=== PATIENT | male | born 1990 | race Caucasian/White ===

== ENCOUNTER 2018-05-20 07:30 | Day surgery (SDC) | payer OTHER ==
[2018-05-10 11:39] VITALS: BMI 32.5
[2018-05-20] MEDS ORDERED: MIDAZOLAM HCL 2 MG/2 ML SINGLE DOSE VIAL ONE ×2 (09:57→11:29)
[2018-05-20] MEDS ORDERED: ROPIVACAINE HCL 0.5% 30ML VIAL ONE (09:57)
[2018-05-20] MEDS ORDERED: BUPIVACAINE HCL/EPINEPHRINE/PF 30 ML VIAL IJ ONE (11:04)
[2018-05-20] MEDS ORDERED: ceFAZolin SODIUM 1 GM VIAL ONE (11:28)
[2018-05-20] MEDS ORDERED: EPINEPHrine 1:1,000 1 MG/1 ML - 30ML VIAL (INJECTION) ONE (11:39)
[2018-05-20] MEDS ORDERED: BUPIVACAINE 0.25% /EPI 1:200,000 10 ML VIAL INF ONE (11:45)
[2018-05-20 13:46] VITALS: PULSE 88
[2018-05-20 14:57] VITALS: BP 123/68; TEMP 98.3
--- NOTE | 2018-05-20 15:05 | OP ---
Operative Note - Note: Operative Date: 05/20/18 Pre-Operative Diagnosis: Right shoulder pain Operation: Right shoulder arthroscopy, distal clavicle excision, labral debridement Post-Operative Diagnosis: Same as Pre-op Surgeon: Omer Chang Top Waddy: Shiva Shanks Anesthesiologist/SOLID WASTE ANALYST: Tor Tilley Anesthesia: MAC Operative Report Dictated: Yes
--- NOTE | 2018-05-20 15:06 | SURG ---
Surgery Furniture Assembler Note Furniture Assembler: Shiva Shanks PA-C Date of Service: 05/20/18 Diagnosis: Right shoulder pain Procedure: Right shoulder arthroscopy, distal clavicle excision, labral debridement I was present for the entirety of the operative procedure. For further detail, please refer to operative report. Visit type - Case Type Case Type: Scheduled - New patient This patient is new to me today: Yes Date on this admission: 05/20/18
--- NOTE | 2018-05-25 14:28 | PATH ---
Surgical Pathology Report Patient Name: ANNABEL SWEENEY Med. Rec. #: [id number] /Age/Gender: 1990 (Age: 27) / M Account: [id number] Location: [facility] Taken: 05/20/2018 Received: 05/20/2018 Reported: 05/25/2018 Physicians: Omer Chang M.D. Specimen(s) Received RIGHT SHOULDER CLAVICLE AND BURSA SHAVINGS Clinical History Type III slap lesion right shoulder Final Diagnosis SHOULDER, RIGHT, CLAVICULAR AND BURSA, SHAVINGS: SKELETAL, MUSCLE, BONE, CARTILAGE AND FIBROSYNOVIAL TISSUE. Electronically Signed Lizbeth Tellez M.D. Gross Description Received in formalin, labeled "right shoulder clavicular and bursa shavings," is a 4.5 x 3.8 x 0.3 cm. aggregate of [place]-yellow soft tissue fragments. A senior human resources representative portion is submitted in one cassette. 05/23/201805/23/2018
== END 2018-05-20 14:40 | disposition home or self-care (01) ==
LOC: FASU 07:30
PROVIDERS: ATTEND Orthopaedic Surgery
PROC: 0RBJ4ZZ Excision of Right Shoulder Joint, Percutaneous Endoscopic Approach (ICD-10-PCS; 2018-05-20)
PROC: 0PB94ZZ Excision of Right Clavicle, Percutaneous Endoscopic Approach (ICD-10-PCS; principal; 2018-05-20 09:15)
DX: M19.011 Primary osteoarthritis, right shoulder (principal); M24.111 Other articular cartilage disorders, right shoulder
CPT/HCPCS: 88304-TC; 94760